=== PATIENT | female | born 1965 | race Caucasian/White ===

== ENCOUNTER → 2017-11-21 | Outpatient (CLI) | payer OTHER ==
[~2017-11-21] MED LIST: IOPAMIDOL (ISOVUE-300) 100 ML BTL ONE
== END ==
LOC: FIMAGING 13:00
PROVIDERS: ATTEND Urology
DX: Z85.50 Personal history of malignant neoplasm of unspecified urinary tract organ (principal); R93.8 Abnormal findings on diagnostic imaging of other specified body structures
CPT/HCPCS: Q9967

== ENCOUNTER → 2018-01-30 | Outpatient (CLI) | payer OTHER | LOC: FIMAGING 14:29 | PROVIDERS: ATTEND Family Medicine | DX: N83.292 Other ovarian cyst, left side (principal) ==

== ENCOUNTER 2018-10-11 19:25 | Emergency (ER) | payer OTHER | END 2018-10-11 21:50 | disposition home or self-care (01) ==